=== PATIENT | female | born 1965 | race Caucasian/White ===

== ENCOUNTER 2020-04-29 18:37 | Emergency (ER) | payer BC ==
[~2020-04-29] VITALS: Ht 170.2 cm; Wt 81.0 kg
--- NOTE | 2020-04-29 19:27 | PHYS DOC ---
Past History Past Medical History: Cancer, High Cholesterol, Migraines Additional Past Medical Histor: AV malformation, breast cancer (RACQUEL BURT APRN) Past Surgical History: Cholecystectomy, Tubal ligation, Other Additional Past Surgical Histo: Right mastectomy, lymph nodes, left BKA. (RACQUEL BURT APRN) Alcohol Use: Occasionally (RACQUEL BURT APRN) General Adult EDM: Chief Complaint: NAUSEA/VOMITING/DIARRHEA HPI: HPI: Patient is a 54 year old female who presents with nausea, vomiting and diarrhea. Patient states she started vomiting and having diarrhea this morning. Patient reports abdominal cramping . Denies fever or recent illness or antibiotics. Patient reports taking motrin and otc nausea medication but unable to keep anything down. "The last time I was able to eat was last night at dinner". Patient has history of hyperlipidemia and breast cancer. (RACQUEL BURT APRN) Review of Systems: Review of Systems: Constitutional: Denies fever or chills Eyes: Denies change in visual acuity HENT: Denies nasal congestion or sore throat Respiratory: Denies cough or shortness of breath Cardiovascular: Denies chest pain or edema GI: Reports abdominal pain, nausea, vomiting, and diarrhea , Denies bloody stools : Denies dysuria Musculoskeletal: Denies back pain or joint pain Integument: Denies rash Neurologic: Denies headache, focal weakness or sensory changes Endocrine: Denies polyuria or polydipsia Lymphatic: Denies swollen glands Psychiatric: Denies depression or anxiety (RACQUEL BURT APRN) Allergies: Allergies: Allergies Coded Allergies Type Severity Reaction Last Updated Verified No Known Drug Allergies 04/29/20 No (RACQUEL BURT APRN) Physical Exam: PE: Constitutional: Well developed, well nourished, no acute distress, non-toxic appearance. [] HENT: Normocephalic, atraumatic, bilateral external ears normal, oropharynx moist, no oral exudates, nose normal. [] Eyes: PERRLA, EOMI, conjunctiva normal, no discharge. [] Neck: Normal range of motion, no tenderness, supple, no stridor. [] Cardiovascular:Heart rate regular rhythm, no murmur [] Lungs & Thorax: Bilateral breath sounds clear to auscultation [] Abdomen: Bowel sounds normal, soft, tenderness with palpatation Skin: Warm, dry, no erythema, no rash. [] Back: No tenderness, no CVA tenderness. [] Extremities: No tenderness, no cyanosis, no clubbing, ROM intact, no edema. [] Neurologic: Alert and oriented X 3, normal motor function, normal sensory function, no focal deficits noted. [] Psychologic: Affect normal, judgement normal, mood normal. [] (RACQUEL BURT APRN) Current Patient Data: Vital Signs: Vital Signs Date Time Temp Pulse Resp B/P (MAP) Pulse Ox O2 Delivery O2 Flow Rate FiO2 04/29/20 18:45 97.9 92 22 152/92 (112) 97 (RACQUEL BURT APRN) EKG: EKG: [] (RACQUEL BURT APRN) Radiology/Procedures: Radiology/Procedures: [] (RACQUEL BURT APRN) Heart Score: Risk Factors: Risk Factors: DM, Current or recent (<one month) smoker, HTN, HLP, family history of CAD, obesity. Risk Scores: Score 0 - 3: 2.5% MACE over next 6 weeks - Discharge Home Score 4 - 6: 20.3% MACE over next 6 weeks - Admit for Clinical Observation Score 7 - 10: 72.7% MACE over next 6 weeks - Early Invasive Strategies (RACQUEL BURT APRN) Course & Med Decision Making: Course & Med Decision Making Pertinent Labs and Imaging studies reviewed. (See chart for details) []Patient is a 54 year old female who presents with nausea, vomiting and di arrhea. Patient states she started vomiting and having diarrhea this morning. Patient reports abdominal cramping . Denies fever or recent illness or antibiotics. Patient reports taking motrin and otc nausea medication but unable to keep anything down. "The last time I was able to eat was last night at dinner". Patient has history of hyperlipidemia and breast cancer. Patient was given torodal, zofran and Bentyl for pain. Patient reports pain has improved. Patient given PO challenge and able to keep water down prior to discharge. Patient is okay with DC home and follow up with PCP. Patient is hemodynamically stable and able to ambulate at discharge. 1.Viral Gastroenteritis 2. abdominal pain (RACQUEL BURT APRN) [place] Disclaimer: [place] Disclaimer: This electronic medical record was generated, in whole or in part, using a voice recognition dictation system. (RACQUEL BURT APRN) Departure Departure: Impression: Primary Impression: Gastroenteritis Disposition: 01 DC HOME SELF CARE/HOMELESS Condition: IMPROVED Referrals: BRIGITTE VILLANUEVA MD (PCP) Patient Instructions: Viral Gastroenteritis, [id number] Additional Instructions: You were seen in the ER today for nausea, vomiting and diarrhea. Scripts Dicyclomine Hcl (BENTYL) 10 Mg/1 Ml Ampul 10 MG IM Q6HRS PRN for ABDOMINAL CRAMPS for 7 Days, #28 EACH Prov: RACQUEL BURT APRN 04/29/20 Ondansetron Hcl (ZOFRAN) 4 Mg Tablet 4 MG PO TID PRN PRN for NAUSEA, #9 TAB Prov: RACQUEL BURT APRN 04/29/20 Attending Signature Attending Signature I have participated in the care of this patient and I have reviewed and agree with all pertinent clinical information above including history, exam, and recommendations. (LISANDRA SUBRAMANIAN MD) RACQUEL BURT APRN Apr 29, 2020 19:27 LISANDRA SUBRAMANIAN MD May 03, 2020 02:44
[2020-04-29] MEDS ORDERED: DICYCLOMINE HCL 20 MG TABLET PO ONE (19:30)
[2020-04-29] MEDS ORDERED: PROCHLORPERAZINE 10 MG/2 ML VIAL. IV ONE (19:30)
[2020-04-29] MEDS ORDERED: KETOROLAC 15 MG/ML VIAL. IVP ONE (19:30)
[2020-04-29] MEDS ORDERED: IV NORMAL SALINE 1,000ML 1,000 ML IV ONE (19:30)
[2020-04-29 19:44] LABS: BASO # 0.1 x10^3/uL (0.0-0.2); BASO % 1 % (0-3); EOS % 1 % (0-3); HEMOGLOBIN 14.1 g/dL (12.0-15.5); LYMPH % 20 % (24-48); MEAN CORPUSCULAR HEMOGLOBIN 29 pg (25-35); MEAN CORPUSCULAR HGB CONC 34 g/dL (31-37); MEAN CORPUSCULAR VOLUME 86 fL (79-100); MONO # 0.6 x10^3/uL (0.0-1.1); MONO % 6 % (0-9); NEUT # 7.3 x10^3uL (1.8-7.7); NEUT % 73 % (31-73); PLATELET COUNT 308 x10^3/uL (140-400); RED BLOOD COUNT 4.89 x10^6/uL (3.50-5.40); RED CELL DISTRIBUTION WIDTH 14.1 % (11.5-14.5)
[2020-04-29 19:57] LABS: CALCIUM 8.9 mg/dL (8.5-10.1); CREATININE 0.9 mg/dL (0.6-1.0); GFR 65.8; POTASSIUM 3.6 mmol/L (3.5-5.1)
[2020-04-29 20:03] LABS: ALBUMIN 3.8 g/dL (3.4-5.0); TOTAL BILIRUBIN 0.4 mg/dL (0.2-1.0); TOTAL PROTEIN 7.6 g/dL (6.4-8.2)
[2020-04-29 21:08] LABS: BACTERIA,URINE 0 /HPF (0-FEW); BILIRUBIN,URINE NEG (NEG); CLARITY,URINE CLEAR; COLOR,URINE AMBER; GLUCOSE,URINE NEG (NEG); NITRITE,URINE NEG (NEG); RBC,URINE 0 /HPF (0-2); UROBILINOGEN,URINE 0.2 mg/dL (0.2 mg/dL); WBC,URINE 0 /HPF (0-4)
[2020-04-29 21:40] VITALS: BP 118/70
[2020-04-29] MEDS ORDERED: ONDA4TAB7 PO (21:44)
[2020-04-29] MEDS ORDERED: DICY10AM IM (21:44)
--- NOTE | 2020-04-29 23:04 | EKG ---
[address] [address] Test Date: 2020-04-29 Test Time: 19:42:22 Pat Name: JOO DANIELSON Department: Room: Gender: [employer] Member: : [id number] Requested By: RACQUEL BURT Order Number: [id number] Reading MD: Measurements Intervals [place] Rate: 68 P: 62 [place]: 136 QRS: 33 QRSD: 92 T: 23 QT: 418 QTc: 449 Interpretive Statements SINUS RHYTHM NORMAL ECG RI6.02 No previous ECG available for comparison
== END 2020-04-29 21:53 | disposition home or self-care (01) ==
LOC: ER 18:37
DX: A08.4 Viral intestinal infection, unspecified (principal); R10.9 Unspecified abdominal pain; E78.00 Pure hypercholesterolemia, unspecified; G43.909 Migraine, unspecified, not intractable, without status migrainosus; Z90.49 Acquired absence of other specified parts of digestive tract; Z98.51 Tubal ligation status
CPT/HCPCS: 36415; 80053; 81001; 85025; 93005; 96361; 96374; 96375; 99284; J0780; J1885; J7030; 99285-25